=== PATIENT | female | born 1950 | race Caucasian/White ===

== ENCOUNTER 2019-04-21 13:56 | Emergency (ER) | payer MEDICARE ==
[2019-04-21 14:55] VITALS: BP 146/82
[2019-04-21] MEDS ORDERED: Lidocaine 1% MPF ** 5 ML VIAL INJ ONE (15:43)
--- NOTE | 2019-04-21 15:47 | UC ---
Skin Complaint HPI - HPI Summary HPI Summary: 61-year-old woman comes in with chief complaint of laceration to her left index finger. She was cutting some meat and axillae cut her own finger. To in the pad of the distal index finger. It is about 1.5 cm long. Bleeding stopped with direct pressure. It does start bleeding again is in she takes pressure off. No complaint of any numbness or weakness. Not on any blood thinners. Patient reports she believes she's had a last tetanus within 5 years. - History of Current Complaint Chief Complaint: UCUpperExtremity Time Seen by Provider: 04/21/19 15:39 Stated Complaint: FINGER INJURY Pain Intensity: 0 - Allergy/Home Medications Allergies/Adverse Reactions: Allergies Allergy/AdvReac Type Severity Reaction Status Date / Time codeine Allergy Unknown Verified 04/21/19 14:56 Reaction Details Home Medications: Home Medications Turmeric 400 mg PO DAILY 04/21/19 [History Confirmed 04/21/19] PMH/Surg Hx/FS Hx/Imm Hx Previously Healthy: Yes - Surgical History Surgical History: Yes Surgery Procedure, Year, and Place: WISDOM TEETH REMOVALCOLONOSCOPY, HIP REPLACEMENT RIGHT 10/27 - Family History Known Family History: Positive: Non-Contributory - Social History Alcohol Use: Daily Substance Use Type: None Smoking Status (MU): Never Smoked Tobacco Review of Systems All Other Systems Reviewed And Are Negative: Yes Constitutional: Positive: Negative Skin: Positive: Other - SEE HPI Eyes: Positive: Negative ENT: Positive: Negative Respiratory: Positive: Negative Cardiovascular: Positive: Negative Gastrointestinal: Positive: Negative Motor: Positive: Negative Neurovascular: Positive: Negative Musculoskeletal: Positive: Negative Neurological: Positive: Negative Psychological: Positive: Negative Is Patient Immunocompromised?: No Physical Exam Triage Information Reviewed: Yes Appearance: Well-Appearing, No Pain Distress, Well-Nourished Vital Signs: Initial Vital Signs Temp 98.3 F 04/21/19 14:52 Pulse 79 04/21/19 14:52 Resp 18 04/21/19 14:52 BP 146/82 04/21/19 14:52 Pulse Ox 98 04/21/19 14:52 Vital Signs Reviewed: Yes Eye Exam: Normal Eyes: Positive: Conjunctiva Clear Neck: Positive: Supple Respiratory: Positive: No respiratory distress Musculoskeletal: Positive: Strength Intact, ROM Intact Neurological: Positive: Alert, Muscle Tone Normal Psychological: Positive: Age Appropriate Behavior Skin: Positive: Other - On the pad of the left index finger there is a subcutaneous 1.5 cm laceration that the bleeding stops with direct pressure however when he takes pressure off it does bleed. Fingers full range of motion normal capillary refill normal strength. Patient reports the tip of the finger has vibration sense but there may be some decreased sensation on the tip. Laceration Repair - Laceration Repair 1 Procedure Summary: Pad of right index finger. Description: Linear Laceration Size After Repair: Length (cm) - Subcutaneous 1.5 cm Modified For Repair: No Type Injection: Local Anesthesia Used: 1.0% Lido Irrigation With Pressure Irrigation Device: Yes Closure Material: Sutures Closure Method: Single Layer - Total of 6 sutures Suture Of: Skin Suture Type: Prolene - 5-0 Course/Dx - Course Course Of Treatment: Patient reports she is up-to-date on her tetanus - Diagnoses Provider Diagnosis: Laceration of left index finger Discharge ED - Sign-Out/Discharge Documenting (check all that apply): Patient Departure All imaging exams completed and their final reports reviewed: No Studies - Discharge Plan Condition: Stable Disposition: HOME Patient Education Materials: Laceration (ED), Care For Your Stitches (ED) Referrals: Navneet Freeman MD [Primary Care Provider] - Teri Candelario MD [Medical Doctor] - Saud Grimaldo MD [Medical Doctor] - Additional Instructions: FOLLOW UP WITH YOUR DOCTOR. Sutures out in 8-10 days. If you have any loss of strength or decreased sensation or any other problems with the laceration healing follow-up with orthopedics hand specialist. GET REEVALUATED SOONER IF NOT IMPROVED OR WORSE; SIGNS OF INFECTION OR ANY QUESTIONS OR CONCERNS. - Billing Disposition and Condition Condition: STABLE Disposition: Home
== END 2019-04-21 17:28 | disposition home or self-care (01) ==
LOC: UCEAST 13:56
DX: S61.211A Laceration without foreign body of left index finger without damage to nail, initial encounter (principal); W26.8XXA Contact with other sharp object(s), not elsewhere classified, initial encounter; Y92.9 Unspecified place or not applicable; Z88.5 Allergy status to narcotic agent
CPT/HCPCS: 12001; 99211; G0463

== ENCOUNTER 2019-05-01 10:39 | Emergency (ER) | payer MEDICARE ==
[2019-05-01 11:03] VITALS: BP 124/80
--- NOTE | 2019-05-01 11:53 | UC ---
HPI Wound/Suture Re-check - HPI Summary HPI Summary: here for removal of sutures from well healed laceration of the distal left second digit - History Of Current Complaint Chief Complaint: UCLaceration Stated Complaint: STITCHES OUT OF FINGER Time Seen by Provider: 05/01/19 11:46 Onset/Duration: Sudden Onset Severity: Mild Pain Intensity: 0 - Allergies/Home Medications Allergies/Adverse Reactions: Allergies Allergy/AdvReac Type Severity Reaction Status Date / Time codeine Allergy Unknown Verified 05/01/19 11:03 Reaction Details PMH/Surg Hx/FS Hx/Imm Hx Previously Healthy: Yes - Surgical History Surgical History: Yes Surgery Procedure, Year, and Place: WISDOM TEETH REMOVALCOLONOSCOPY, HIP REPLACEMENT RIGHT 10/27 - Family History Known Family History: Positive: Non-Contributory - Social History Occupation: Employed Part-time, Retired Lives: With Family Alcohol Use: Daily Substance Use Type: None Smoking Status (MU): Never Smoked Tobacco Review of Systems All Other Systems Reviewed And Are Negative: Yes Constitutional: Positive: Negative Skin: Positive: Other - laceration well healed Is Patient Immunocompromised?: No Physical Exam Triage Information Reviewed: Yes Appearance: Well-Appearing, No Pain Distress Vital Signs: Initial Vital Signs Temp 98 F 05/01/19 11:01 Pulse 72 05/01/19 11:01 Resp 16 05/01/19 11:01 BP 124/80 05/01/19 11:01 Pulse Ox 98 05/01/19 11:01 Respiratory Exam: Normal Cardiovascular Exam: Normal Skin Exam: Other - removed 6 interrupted sutures from the distal left index finger. Wound is well approximated and well healed, with no evidence of infection. Course/Dx - Course Course Of Treatment: sutures removed from well healed laceration. - Differential Dx - Laceration/Wound Differential Diagnoses: Suture Removal - Diagnosis Provider Diagnosis: Visit for suture removal Discharge ED - Sign-Out/Discharge Documenting (check all that apply): Patient Departure All imaging exams completed and their final reports reviewed: No Studies - Discharge Plan Condition: Good Disposition: HOME Patient Education Materials: Stitches Removal (ED) Referrals: Navneet Freeman MD [Primary Care Provider] - Additional Instructions: Continue to apply a light layer of topical antibiotic to the healing laceration , for 2 to 3 days. - Billing Disposition and Condition Condition: GOOD Disposition: Home
== END 2019-05-01 12:26 | disposition home or self-care (01) ==
LOC: UCEAST 10:39
DX: S61.211D Laceration without foreign body of left index finger without damage to nail, subsequent encounter (principal); Z88.5 Allergy status to narcotic agent; X58.XXXD Exposure to other specified factors, subsequent encounter